=== PATIENT | male | born 1950 | race Caucasian/White ===

== ENCOUNTER 2020-12-16 14:57 | Inpatient (IN) | payer OTHER ==
[~2020-12-16] VITALS: Ht 170.2 cm; Wt 163.3 kg
[~2020-12-16 14:57] MED LIST: FLUO20CA19; HYDR25TA4; LISI40TA11; LOVA40TA72; SULF-35; TRAM50TA2
[2020-12-16] MEDS ORDERED: ENOXAPARIN SOD 100 MG/1 ML SYRINGE SC ONE (16:00)
[2020-12-16 16:40] LABS: Basophils # (auto) 0.1 10 ^3/uL (0-0.2); Basophils % (auto) 0.7 % (0.0-2.0); Eosinophils # (auto) 0.3 10 ^3/uL (0-0.8); Eosinophils % (auto) 2.7 % (0.0-7.0); Hematocrit 45.6 % (41.0-53.0); Hemoglobin 15.3 g/dL (13.5-17.5); Lymphocytes # (auto) 2.5 10 ^3/uL (0.4-5.4); Lymphocytes % (auto) 21.6 % (10.0-50.0); Mean Corpuscular Hemoglobin 31.3 pg (28.0-32.0); Mean Corpuscular Hgb Conc. 33.5 g/dL (32.0-36.0); Mean Corpuscular Volume 93.4 fL (80.0-100.0); Monocytes # (auto) 0.5 10 ^3/uL (0-1.3); Monocytes % (auto) 4.4 % (0.0-12.0); Neutrophils # (auto) 8.1 10 ^3/uL (1.6-8.6); Neutrophils % (auto) 70.6 % (37.0-80.0); Red Blood Cells 4.88 10^6/uL (4.5-5.90); Red Cell Distribution Width 13.2 % (11.8-14.3); White Blood Cell 11.4 10^3/uL (4.4-10.8)
[2020-12-16 16:51] LABS: INR 0.99 (0.9-1.15); Partial Thromboplastin Time 27.4 sec (23.6-33.0)
[2020-12-16 18:04] LABS: Albumin 3.5 g/dL (3.4-5.0); BUN/Creatinine Ratio 18.3; Calcium 9.1 mg/dL (8.5-10.1); Potassium 3.8 mmol/L (3.5-5.1)
[2020-12-16 18:07] LABS: Bilirubin, Total 0.6 mg/dL (0.2-1.0); Total Protein 8.2 g/dL (6.4-8.2)
[2020-12-17] MEDS ORDERED: IOHEXOL 350 MG/ML 100ML IJ ONE (01:34)
[2020-12-17] MEDS ORDERED: TEMAZEPAM 15 MG CAP PO PRN (02:15)
[2020-12-17] MEDS ORDERED: ONDANSETRON HCL 4 MG/2 ML VIAL IV PRN ×2 (02:15→09:15)
[2020-12-17] MEDS ORDERED: ACETAMINOPHEN 325 MG TAB PO PRN (02:15)
[2020-12-17] MEDS ORDERED: HYDROcodone-ACET 5/325MG TAB PO PRN (09:15)
[2020-12-17] MEDS ORDERED: MORPHINE SULFATE INJECTION 2 MG/ML SYRG IV PRN (09:15)
[2020-12-17] MEDS ORDERED: ENOXAPARIN SOD 100 MG/1 ML SYRINGE SC SCH (10:00)
[2020-12-17] MEDS ORDERED: ENOXAPARIN SOD 150 MG/1 ML SYRINGE SC SCH (10:00)
[2020-12-17] MEDS ORDERED: PANTOPRAZOLE 40 MG TAB PO SCH (10:00)
[2020-12-17] MEDS ORDERED: LISINOPRIL 20 MG TAB PO SCH (10:00)
[2020-12-17] MEDS ORDERED: APIX5TAB PO (15:50)
[2020-12-17 17:30] VITALS: BP 137/86
[2020-12-17] MEDS ORDERED: APIXABAN 5 MG TAB PO SCH (22:00)
[2020-12-17] MEDS ORDERED: ATORVASTATIN 20 MG TAB PO SCH (22:00)
[2020-12-24] MEDS ORDERED: APIXABAN 5 MG TAB PO SCH (22:00)
== END 2020-12-17 17:34 | disposition home or self-care (01) | DRG 300 ==
LOC: ER 14:57 → OVERFLOW 12-17 02:09
PROVIDERS: ADMIT Nurse Practitioner; ATTEND Hospitalist
DX: I82.412 Acute embolism and thrombosis of left femoral vein (principal); Z68.43 Body mass index [BMI] 50.0-59.9, adult; I82.432 Acute embolism and thrombosis of left popliteal vein; E66.01 Morbid (severe) obesity due to excess calories; I10 Essential (primary) hypertension; E78.5 Hyperlipidemia, unspecified; Z20.822 Contact with and (suspected) exposure to COVID-19; Z71.3 Dietary counseling and surveillance
CPT/HCPCS: 36415; 71275; 80053; 84484; 85025; 85610; 85730; 87426; 93005; 93971; 96372; G0378

== ENCOUNTER 2021-01-16 14:22 | Emergency (ER) | payer OTHER ==
[~2021-01-16] VITALS: Ht 170.2 cm; Wt 154.2 kg
[~2021-01-16 14:22] MED LIST changes: +APIX5TAB PO
[2021-01-16 15:24] VITALS: BP 113/66
[2021-01-16] MEDS ORDERED: IBUP800T27 PO (16:06)
[2021-01-16] MEDS ORDERED: CEPH500T PO (16:06)
== END 2021-01-16 16:17 | disposition home or self-care (01) ==
LOC: ER 14:22
DX: L03.011 Cellulitis of right finger (principal); E78.5 Hyperlipidemia, unspecified; I10 Essential (primary) hypertension
CPT/HCPCS: 10060

== ENCOUNTER 2021-01-18 13:32 | Emergency (ER) | payer OTHER ==
[~2021-01-18] VITALS: Ht 170.2 cm; Wt 154.2 kg
[~2021-01-18 13:32] MED LIST changes: +CEPH500T PO; +IBUP800T27 PO
[2021-01-18 14:41] VITALS: BP 112/64
== END 2021-01-18 15:52 | disposition home or self-care (01) ==
LOC: ER 13:32
DX: I10 Essential (primary) hypertension (principal); E78.5 Hyperlipidemia, unspecified; Z48.01 Encounter for change or removal of surgical wound dressing

== ENCOUNTER 2022-02-14 13:47 | Emergency (ER) | payer OTHER ==
[~2022-02-14] VITALS: Ht 172.7 cm; Wt 144.0 kg
[2022-02-14 15:22] VITALS: BP 141/71
[2022-02-14] MEDS ORDERED: cefTRIAXone SOD 1,000 MG VL IM ONE (15:30)
[2022-02-14] MEDS ORDERED: AMOX-277 PO (15:55)
[2022-02-14] MEDS ORDERED: IBUP800T27 PO (15:55)
== END 2022-02-14 16:18 | disposition home or self-care (01) ==
LOC: ER 13:47
DX: H66.92 Otitis media, unspecified, left ear (principal); J02.9 Acute pharyngitis, unspecified; E78.5 Hyperlipidemia, unspecified; I10 Essential (primary) hypertension
CPT/HCPCS: 96372; 99283; J0696

== ENCOUNTER 2023-03-08 19:29 | Emergency (ER) | payer OTHER ==
[~2023-03-08 19:29] MED LIST changes: +AMOX875T4 PO; +IBUP-1456 PO; -IBUP800T27 PO; -LISI40TA11; +LISI40TA16
== END 2023-03-08 21:02 | disposition left against medical advice (07) ==
LOC: ER 19:29
DX: M79.606 Pain in leg, unspecified (principal); Z53.21 Procedure and treatment not carried out due to patient leaving prior to being seen by health care provider

== ENCOUNTER 2023-03-09 10:51 | Inpatient (IN) | payer OTHER ==
[~2023-03-09] VITALS: Ht 172.7 cm; Wt 143.5 kg
[2023-03-09 11:51] LABS: Basophils # (auto) 0.1 10 ^3/uL (0-0.2); Basophils % (auto) 0.6 % (0.0-2.0); Eosinophils # (auto) 0.2 10 ^3/uL (0-0.8); Eosinophils % (auto) 1.3 % (0.0-7.0); Hematocrit 47.7 % (41.0-53.0); Hemoglobin 15.6 g/dL (13.5-17.5); Lymphocytes # (auto) 2.8 10 ^3/uL (0.4-5.4); Mean Corpuscular Hemoglobin 31.9 pg (28.0-32.0); Mean Corpuscular Hgb Conc. 32.7 g/dL (32.0-36.0); Mean Corpuscular Volume 97.4 fL (80.0-100.0); Monocytes # (auto) 0.6 10 ^3/uL (0-1.3); Monocytes % (auto) 3.9 % (0.0-12.0); Neutrophils # (auto) 11.7 10 ^3/uL (1.6-8.6); Neutrophils % (auto) 76.2 % (37.0-80.0); Nucleated Red Blood Cells % 0.1 %; Red Cell Distribution Width 13.4 % (11.8-14.3); White Blood Cell 15.4 10^3/uL (4.4-10.8)
[2023-03-09 12:04] LABS: Alanine Aminotransferase 17 U/L (7-40); Albumin 4.8 g/dL (3.2-4.8); Alkaline Phosphatase 68 U/L (46-116); Anion Gap 11 (5-15); Aspartate Aminotransferase 17 U/L (13-40); BUN/Creatinine Ratio 10.1 (10.0-20.0); Blood Urea Nitrogen 17 mg/dL (9-23); CRP High Sensitivity 0.21 mg/dL (<1.0); Carbon Dioxide 25 mmol/L (20-30); Chloride 104 mmol/L (98-107); Glucose 150 mg/dL (74-106); Potassium 4.1 mmol/L (3.5-5.1); Sodium 140 mmol/L (136-145)
[2023-03-09 12:05] LABS: Bilirubin, Total 0.7 mg/dL (0.2-1.0); Total Protein 7.9 g/dL (5.7-8.2)
[2023-03-09 12:32] LABS: Erythrocyte Sedimentation Rate 14 mm/hr (0-20)
[2023-03-09] MEDS ORDERED: CLINDAMYCIN 600MG IV 50 ML IV ONE (15:00)
[2023-03-09] MEDS ORDERED: FUROSEMIDE 40 MG/4 ML VIAL IV ONE (15:00)
[2023-03-09] MEDS ORDERED: HEPARIN SODIUM (PORCINE) 5000 UNITS/ML 1ML VIAL IV ONE (20:15)
[2023-03-09] MEDS ORDERED: ASPirin 325 MG TAB PO ONE (20:15)
[2023-03-09] MEDS ORDERED: HYDROcodone-ACET 5/325MG TAB PO PRN (20:30)
[2023-03-09] MEDS ORDERED: ONDANSETRON HCL 4 MG/2 ML VIAL IV PRN (20:30)
[2023-03-09] MEDS ORDERED: hydrALAZINE HCL 10 MG TAB PO PRN (20:30)
[2023-03-09] MEDS ORDERED: ACETAMINOPHEN 325 MG TAB PO PRN (20:30)
[2023-03-09 21:10] LABS: Basophils # (auto) 0.1 10 ^3/uL (0-0.2); Basophils % (auto) 0.9 % (0.0-2.0); Eosinophils # (auto) 0.2 10 ^3/uL (0-0.8); Eosinophils % (auto) 1.8 % (0.0-7.0); Hematocrit 48.4 % (41.0-53.0); Hemoglobin 15.8 g/dL (13.5-17.5); Lymphocytes # (auto) 3.1 10 ^3/uL (0.4-5.4); Lymphocytes % (auto) 22.7 % (10.0-50.0); Mean Corpuscular Hemoglobin 31.8 pg (28.0-32.0); Mean Corpuscular Hgb Conc. 32.7 g/dL (32.0-36.0); Mean Corpuscular Volume 97.3 fL (80.0-100.0); Monocytes # (auto) 0.6 10 ^3/uL (0-1.3); Monocytes % (auto) 4.3 % (0.0-12.0); Neutrophils # (auto) 9.5 10 ^3/uL (1.6-8.6); Neutrophils % (auto) 70.3 % (37.0-80.0); Nucleated Red Blood Cells % 0.1 %; Red Blood Cells 4.98 10^6/uL (4.5-5.90); Red Cell Distribution Width 13.1 % (11.8-14.3); White Blood Cell 13.6 10^3/uL (4.4-10.8)
[2023-03-09 21:27] LABS: INR 1.02 (0.9-1.15); Partial Thromboplastin Time 24.8 SEC (24.5-34.5); Prothrombin Time 10.7 sec (9.3-11.8)
[2023-03-09 21:57] LABS: Lactic Acid w/Reflex 4.9 mmol/L (0.4-2.0)
[2023-03-09] MEDS ORDERED: CLINDAMYCIN 600MG IV 50 ML IV SCH (22:00)
[2023-03-09 23:00] VITALS: BP 116/66; PULSE 87; RESP 16; TEMP 98; O2SAT 91; O2SAT 95
[2023-03-10] MEDS: HEPARIN DRIP/D5W 100UNITS/ML 250 ML IV SCH ×2 (01:20→10:14)
[2023-03-10] MEDS ORDERED: ASPI-543 PO (02:33)
[2023-03-10] MEDS ORDERED: NIFE90TA75 PO (02:33)
[2023-03-10] MEDS ORDERED: EMPA1TAB PO (02:33)
[2023-03-10] MEDS ORDERED: PRAV20TA3 GT (02:33)
[2023-03-10 05:00] VITALS: BP 106/57; PULSE 82; RESP 16; TEMP 98.2; O2SAT 92
[2023-03-10 05:12] LABS: Basophils # (auto) 0.1 10 ^3/uL (0-0.2); Basophils % (auto) 0.8 % (0.0-2.0); Eosinophils # (auto) 0.4 10 ^3/uL (0-0.8); Eosinophils % (auto) 2.6 % (0.0-7.0); Hematocrit 43.6 % (41.0-53.0); Hemoglobin 14.5 g/dL (13.5-17.5); Lymphocytes # (auto) 3.9 10 ^3/uL (0.4-5.4); Lymphocytes % (auto) 27.8 % (10.0-50.0); Mean Corpuscular Hemoglobin 31.9 pg (28.0-32.0); Mean Corpuscular Hgb Conc. 33.1 g/dL (32.0-36.0); Mean Corpuscular Volume 96.2 fL (80.0-100.0); Monocytes # (auto) 0.6 10 ^3/uL (0-1.3); Monocytes % (auto) 4.2 % (0.0-12.0); Neutrophils % (auto) 64.6 % (37.0-80.0); Nucleated Red Blood Cells % 0.1 %; Red Blood Cells 4.53 10^6/uL (4.5-5.90)
[2023-03-10 05:28] LABS: Chloride 102 mmol/L (98-107); Potassium 3.6 mmol/L (3.5-5.1); Sodium 136 mmol/L (136-145)
[2023-03-10 05:29] LABS: Anion Gap 12 (5-15); Carbon Dioxide 22 mmol/L (20-30)
[2023-03-10 05:30] LABS: Calcium 9.3 mg/dL (8.5-10.1)
[2023-03-10 05:35] LABS: BUN/Creatinine Ratio 12.6 (10.0-20.0); Blood Urea Nitrogen 18 mg/dL (9-23); Glucose 117 mg/dL (74-106)
[2023-03-10] MEDS ORDERED: SODIUM CHLORIDE 0.9% 1,000 ML IV ONE (06:00)
[2023-03-10 08:00] VITALS: PULSE 78
[2023-03-10 08:27] VITALS: BP 108/94; PULSE 78; RESP 17; TEMP 97.5; O2SAT 94
[2023-03-10 08:46] LABS: INR 1.03 (0.9-1.15); Prothrombin Time 10.8 sec (9.3-11.8)
[2023-03-10] MEDS ORDERED: PANTOPRAZOLE 40 MG/10 ML VIAL INJ IV SCH (10:00)
[2023-03-10] MEDS: cefTRIAXone 1GM/50ML D5W 50 ML IV SCH (10:11)
[2023-03-10 12:38] VITALS: BP 127/64; PULSE 84; RESP 16; TEMP 97.9; O2SAT 97
[2023-03-10 14:51] LABS: INR 1.04 (0.9-1.15); Partial Thromboplastin Time 47.4 SEC (24.5-34.5); Prothrombin Time 10.9 sec (9.3-11.8)
[2023-03-10 16:26] VITALS: BP 111/60; PULSE 80; RESP 16; TEMP 97.5; O2SAT 92
[2023-03-10 17:36] LABS: Protein, Urine < 6.0 mg/dL (0.0-11.9); Urine Bacteria NONE SEEN /hpf (None Seen); Urine Blood Negative /uL (Negative); Urine Clarity Clear (Clear); Urine Color Colorless (Yellow); Urine Protein, UAD Negative (Negative); Urine Specific Gravity 1.009 (1.001-1.035); Urine Urobilinogen Normal (Negative); Urine WBC <1 /hpf (0 - 3)
[2023-03-10 17:39] LABS: Creatinine, Urine 59.21 mg/dL (30.0-125.0)
[2023-03-10] MEDS: APIXABAN 5 MG TAB PO SCH (17:53)
[2023-03-10] MEDS: FUROSEMIDE 40 MG/4 ML VIAL IV SCH (17:53)
[2023-03-10 22:00] VITALS: BP_SYST 121; BP_SYST 129; BP_DIAS 67; BP_DIAS 78; PULSE 88; PULSE 94; RESP 20; TEMP 97.5; TEMP 98.2; O2SAT 93; O2SAT 98
[2023-03-11 05:00] VITALS: BP 119/60; PULSE 80; RESP 20; TEMP 97.9; O2SAT 91
[2023-03-11] MEDS: APIXABAN 5 MG TAB PO SCH (05:57)
[2023-03-11 06:15] LABS: Basophils # (auto) 0.1 10 ^3/uL (0-0.2); Basophils % (auto) 0.9 % (0.0-2.0); Eosinophils # (auto) 0.4 10 ^3/uL (0-0.8); Eosinophils % (auto) 3.2 % (0.0-7.0); Hematocrit 44.1 % (41.0-53.0); Hemoglobin 14.8 g/dL (13.5-17.5); Lymphocytes # (auto) 3.2 10 ^3/uL (0.4-5.4); Lymphocytes % (auto) 28.2 % (10.0-50.0); Mean Corpuscular Hemoglobin 31.8 pg (28.0-32.0); Mean Corpuscular Hgb Conc. 33.5 g/dL (32.0-36.0); Mean Corpuscular Volume 94.9 fL (80.0-100.0); Monocytes # (auto) 0.5 10 ^3/uL (0-1.3); Monocytes % (auto) 4.4 % (0.0-12.0); Neutrophils # (auto) 7.2 10 ^3/uL (1.6-8.6); Neutrophils % (auto) 63.3 % (37.0-80.0); Nucleated Red Blood Cells % 0.1 %; Red Blood Cells 4.65 10^6/uL (4.5-5.90); Red Cell Distribution Width 13.2 % (11.8-14.3); White Blood Cell 11.4 10^3/uL (4.4-10.8)
[2023-03-11 06:30] LABS: Alanine Aminotransferase 13 U/L (7-40); Albumin 4.3 g/dL (3.2-4.8); Alkaline Phosphatase 61 U/L (46-116); Anion Gap 10 (5-15); Aspartate Aminotransferase 19 U/L (13-40); BUN/Creatinine Ratio 15.8 (10.0-20.0); Blood Urea Nitrogen 22 mg/dL (9-23); Calcium 9.5 mg/dL (8.5-10.1); Carbon Dioxide 24 mmol/L (20-30); Chloride 104 mmol/L (98-107); Glucose 120 mg/dL (74-106); Potassium 3.6 mmol/L (3.5-5.1); Sodium 138 mmol/L (136-145)
[2023-03-11 06:31] LABS: Bilirubin, Total 0.4 mg/dL (0.2-1.0); Total Protein 7.1 g/dL (5.7-8.2)
[2023-03-11 08:00] VITALS: PULSE 72
[2023-03-11 09:05] VITALS: BP 133/91; PULSE 80; RESP 20; TEMP 97.7; O2SAT 94
[2023-03-11] MEDS: cefTRIAXone 1GM/50ML D5W 50 ML IV SCH (09:08)
[2023-03-11] MEDS: FUROSEMIDE 40 MG/4 ML VIAL IV SCH (09:08)
[2023-03-11] MEDS ORDERED: EMPAGLIFLOZIN 10 MG TAB PO SCH (10:00)
[2023-03-11 12:27] VITALS: BP 132/71; PULSE 79; RESP 20; TEMP 97.8; O2SAT 100
[2023-03-11] MEDS ORDERED: APIX5TAB PO ×2 (13:40→13:41)
[2023-03-11 15:22] VITALS: BP 133/91; TEMP 36.6
[2023-03-17] MEDS ORDERED: APIXABAN 5 MG TAB PO SCH (18:00)
== END 2023-03-11 15:58 | disposition home or self-care (01) | DRG 299 ==
LOC: ER 10:51 → TELE 20:24 → TELE-WESTW 20:24
PROVIDERS: ADMIT Nurse Practitioner Family; ATTEND Nurse Practitioner Family
DX: I82.432 Acute embolism and thrombosis of left popliteal vein (principal); N17.0 Acute kidney failure with tubular necrosis; E87.20 Acidosis, unspecified; Z68.42 Body mass index [BMI] 45.0-49.9, adult; I50.22 Chronic systolic (congestive) heart failure; I13.0 Hypertensive heart and chronic kidney disease with heart failure and stage 1 through stage 4 chronic kidney disease, or unspecified chronic kidney disease; E66.01 Morbid (severe) obesity due to excess calories; I82.442 Acute embolism and thrombosis of left tibial vein; N18.2 Chronic kidney disease, stage 2 (mild); E11.22 Type 2 diabetes mellitus with diabetic chronic kidney disease; E78.5 Hyperlipidemia, unspecified
CPT/HCPCS: 36415; 71045; 76775; 80048; 80053; 81001; 82570; 83036; 83605; 83880; 84156; 85025; 85610; 85652; 85730; 86141; 87040; 93005; 93306; 93971; 96365; 96375; C9113; G0378; J3490

== ENCOUNTER 2023-05-08 14:24 | Emergency (ER) | payer OTHER ==
[~2023-05-08] VITALS: Ht 170.2 cm; Wt 148.0 kg
[~2023-05-08 14:24] MED LIST changes: -AMOX875T4 PO; +ASPI-543 PO; -CEPH500T PO; +EMPA1TAB PO; -IBUP-1456 PO; -LOVA40TA72; +NIFE90TA75 PO; -SULF-35; -TRAM50TA2
[2023-05-08 15:02] VITALS: BP 164/81; RESP 20; O2SAT 95
[2023-05-08 15:14] VITALS: PULSE 80
== END 2023-05-08 17:27 | disposition left against medical advice (07) ==
LOC: ER 14:24
DX: M79.89 Other specified soft tissue disorders (principal); I82.501 Chronic embolism and thrombosis of unspecified deep veins of right lower extremity; I10 Essential (primary) hypertension; Z79.899 Other long term (current) drug therapy; Z53.20 Procedure and treatment not carried out because of patient's decision for unspecified reasons
CPT/HCPCS: 93005